=== PATIENT | male | born 1965 | race Caucasian/White ===

== ENCOUNTER 2024-11-17 11:19 | Inpatient (IN) | payer OTHER, SELFPAY ==
[2024-11-17] VITALS (13 sets, daily range): BP systolic 119–170; BP diastolic 71–95; PULSE 61–88; RESP 16–23; TEMP 36.6–37.1; O2SAT 93–98; BMI 31.6
--- NOTE | ~2024-11-17 | XR_ITS ---
XR chest 2V Ordering provider: Pramod Painter History: 58 years Male with . CP, HX OF STENT PLACEMENT . Comparison: None. FINDINGS: MEDIASTINUM: The cardiac silhouette is not enlarged. LUNGS: No infiltrates, effusions or pneumothorax. OTHER: No free air under the diaphragm. Degenerative changes of the spine. IMPRESSION: No acute cardiopulmonary pathology. Reviewed, dictated and finalized at location A. L PRODUCTS I ASSEMBLER
--- NOTE | ~2024-11-17 | US_ITS ---
EXAMINATION: US venous doppler [facility] DATE: 11/17/2024 21:46 INDICATION: Acute pulmonary embolism. TECHNIQUE: Grayscale ultrasound images without and with compression and Doppler ultrasound images of the bilateral lower extremity veins were obtained. COMPARISON: None. FINDINGS: The visualized portions of right common femoral vein, profunda (deep) femoral vein, femoral vein, pop liteal vein, peroneal veins, posterior tibial veins, and greater saphenous vein outflow are patent. The visualized portions of left common femoral vein, profunda femoral vein, femoral vein, popliteal v ein, peroneal veins, posterior tibial veins, and greater saphenous vein outflow are patent. IMPRESSION: 1. No deep venous thrombosis. Reviewed, dictated and finalized at location A. SSIONS NURSE
--- NOTE | ~2024-11-17 | CT_ITS ---
EXAMINATION: CTA chest PE protocol DATE: 11/17/2024 15:33 INDICATION: Elevated d-dimer TECHNIQUE: Computed tomography (CT) pulmonary angiogram of the chest was performed with 100 mL Omnipa que-350 intravenous contrast. Additional 3D reconstructions utilizing coronal maximum intensity proje ction (MIP) were performed. Automated exposure control and iterative reconstruction technique were em ployed. The dose-length product was 591.97 mGy-cm. COMPARISON: None FINDINGS: There are nonocclusive pulmonary arterial filling defects in the posterior segmental pulmonary arteri es of both the right and left lower lobes. There is an additional occlusive appearing filling defect in the superior segmental pulmonary artery of the lingula. There is a small region of consolidation w ithout appreciable enhancement at the anterior superior segment of the lingula consistent with second christine pulmonary infarct. Groundglass opacities and linear opacities in the bilateral lower lobes with s ome mild associated volume loss and favor atelectasis. There is a region of more dense consolidation at the anterobasilar segment of the left lower lobe which enhances and without evident upstream pulmo nary embolism and favor additional atelectasis. Small left pleural effusion. Cardiomegaly. No leftwar d bowing of the ventricular septum to suggest right heart strain. Atherosclerotic coronary artery tanisha cific location. No pericardial effusion. Mildly aneurysmal ascending thoracic aorta measuring up to 4 .1 x 4.1 cm maximal diameter. No dissection. No pathologically enlarged thoracic lymphadenopathy. Mil d diffuse hepatic steatosis with focal sparing along the gallbladder fossa. 3.0 cm exophytic cyst at the upper pole of the right kidney. 1.1 cm splenic cyst. Likely developmental anterior and posterior spinal fusion at T3-T4. Mild thoracic spondylosis. IMPRESSION: 1. Pulmonary embolism with small to moderate clot burden and with likely small infarct at the anterio r lingula. No evident right heart strain. 2. Small left pleural effusion. 3. Cardiomegaly. Reviewed, dictated and finalized at location A. STANT CHIEF TRAIN DISPATCHER IMPRESSION: 1. Pulmonary embolism with small to moderate clot burden and with likely small infarct at the anterior lingula. No evident right heart strain. 2. Small left pleural effusion. 3. Cardiomegaly.
--- NOTE | 2024-11-17 11:23 | ECG_ITS ---
Test Date: 2024-11-17 14:52:20 Measurements Intervals [place] Rate: 69 P: 15 GA: 161 QRS: 9 QRSD: 107 T: 51 QT: 398 QTc: 427 Interpretive Statements SINUS RHYTHM No previous ECG available for comparison Electronically Signed On 11-18-2024 15:48:00 AMMUNITION SPECIALIST by Jerod Arias M.D.
[2024-11-17] MEDS: ASPIRIN 81 MG CHEWABLE TABLET 324 MG PO (11:30)
[2024-11-17 12:10] LABS: Basophils Percent Auto 0.5 % (0.2-1.2); Eosinophils Absolute Auto 0.2 K/mm3 (0-0.3); Eosinophils Percent Auto 3.1 % (0-4.4); Hematocrit 42.1 % (42.0-52.0); Immature Granulocyte Absolute 0.01 K/mm3 (0.00-0.031); Immature Granulocyte Percent A 0.2 % (0-0.5); Lymphocytes Absolute Auto 1.73 K/mm3 (0.9-3.2); Lymphocytes Percent Auto 27.9 % (18.3-44.2); Mean Corpuscular HGB Conc 33.3 g/dl (32-36); Mean Corpuscular Hemoglobin 30.8 pg (26-34); Mean Corpuscular Volume 92.7 fl (80-100); Mean Platelet Volume 10.6 fl (7.4-10.4); Monocytes Absolute Auto 0.4 K/mm3 (0.1-0.6); Monocytes Percent Auto 7.1 % (2.6-8.5); Neutrophils Absolute Auto 3.8 K/mm3 (1.3-6.7); Neutrophils Percent Auto 61.2 % (45.5-73.1); Platelet Count Result 205 k/mm3 (150-375); Red Blood Count 4.54 M/mm3 (4.6-6.20); Red Cell Distribution Width 12.4 % (11.5-14.5); White Blood Count 6.2 K/mm3 (4.5-10.0)
[2024-11-17 12:20] LABS: Alanine Aminotransferase 59 U/L (6-50); Albumin Level 4.2 g/dL (3.5-5.1); Alkaline Phosphatase 82 U/L (38-126); Anion Gap 2 mmol/L (4-12); Aspartate Amino Transferase 48 U/L (17-59); Bilirubin,Total 0.6 mg/dL (0.2-1.3); Blood Urea Nitrogen 10 mg/dL (9-20); Calcium 9.3 mg/dL (8.4-10.2); Carbon Dioxide 30 mmol/L (22-30); Chloride 107 mmol/L (98-107); Estimated CRCL calculation 117 ml/min; Estimated Glomerular Filt Rate > 60; Glucose 108 mg/dL (65-110); Lipase 46 U/L (23-300); Potassium 4.1 mmol/L (3.4-5.0); Sodium 139 mmol/L (137-145)
[2024-11-17 12:21] LABS: Prothrombin Time 13.5 Seconds (11.1-14.7)
[2024-11-17 12:22] LABS: Partial Thromboplastin Time 26.8 Seconds (22.3-36.8)
[2024-11-17 12:31] LABS: Troponin I < 0.012 ng/mL (0.000-0.034)
[2024-11-17 13:09] LABS: Influenza A QL RT-PCR Negative (Negative); Influenza B QL RT-PCR Negative (Negative); RSV RNA, RT-PCR Negative (Negative); SARS-CoV-2 RNA PCR Negative (Negative)
--- NOTE | 2024-11-17 13:45 | ED_ITS ---
HPI - General Adult General Chief complaint: Chest Pain Stated complaint: chest pain x5 days Time Seen by Provider: 11/17/24 12:00 History of Present Illness HPI narrative: 58-year-old male presenting to the emergency department for evaluation for chest pain that started approximately 5 days ago. Patient states the chest pain had been constant but over the last few days it has just been with deep inspiration. Patient does have a prior history of an MT approximately 14 years ago and he felt that he was having a heart attack 2 days ago but did not present to the emergency department until today. States the reason he did not present to the ED is because symptoms were improving. Related Data Home Medications ?Medication ?Instructions ?Recorded ?Confirmed ?Last Taken ?Type amlodipine 2.5 mg tablet mg 11/17/24 11/17/24 History atorvastatin 40 mg tablet mg 11/17/24 11/17/24 History ezetimibe 10 mg tablet mg 11/17/24 11/17/24 History lisinopril 40 mg tablet mg 11/17/24 11/17/24 History pantoprazole 20 mg tablet,delayed mg PO 11/17/24 11/17/24 History release Allergies Allergy/AdvReac Type Severity Reaction Status Date / Time No Known Allergies Allergy Verified 11/17/24 11:21 Review of Systems 2 Review of Systems: All systems reviewed & are unremarkable except as noted in HPI and below PMFSH Past Medical History Medical History CAD (coronary artery disease) HTN (hypertension) HLD (hyperlipidemia) MT (myocardial infarction) Surgical History Surgical History History of heart artery stent x1 Family History Family History Mother Cerebrovascular accident Social History Social History Smoking status: Current every day smoker Tobacco type: cigarettes Alcohol intake: current Drinks per week: 3 Substance use: never Do You Feel Safe in your Home?: Yes Lack of Transportation: No Lack of Food: Never True Current Housing: I Have Housing Concerned About Future Housing: No Difficulty Paying Gas/Electric Bills: No Difficulty Paying for Meds: No Currently Unemployed: No Education: High School Diploma/GED Difficulty w/ Childcare or Family Care: No Spiritual care concerns: No Exam 2 Narrative: APPEARANCE: Well appearing, no pain, no distress, well-nourished. HEAD: normocephalic, atraumatic. EYES: PERRLA/EOMI, conjunctivae clear. NOSE: Normal no drainage EARS:TMS clear with good light reflex. THROAT: Pharynx clear, no exudate. NECK: Supple. No adenopathy, no masses. RESPIRATORY: Airway patent, respirations nonlabored. Clear to auscultation bilaterally, no rales, rhonchi, wheezing. CARDIOVASCULAR: Regular rate and rhythm without murmurs rubs or gallops. ABDOMINAL: Soft, nontender, nondistended, normal bowel sounds MUSCULOSKELETAL: Moves all extremities. Strength/ROM intact, No edema, No calf tenderness. NEURO: Alert. Cranial nerves II through XII intact. Good gait. Good coordination SKIN: Warm, dry. Normal Color Course Vital Signs Vital signs: Vital Signs Temperature 98.8 F 11/17/24 11:23 Pulse Rate 88 11/17/24 11:23 Respiratory Rate 18 11/17/24 11:23 Blood Pressure 157/90 H 11/17/24 11:23 Pulse Oximetry 98 11/17/24 11:23 Oxygen Delivery Room Air 11/17/24 11:23 Temperature 97.9 F 11/17/24 20:00 Pulse Rate 74 11/17/24 20:00 Respiratory Rate 16 11/17/24 20:00 Blood Pressure 137/74 11/17/24 20:00 Pulse Oximetry 96 11/17/24 20:00 Oxygen Delivery Room Air 11/17/24 11:23 Medical Decision Making [facility] Narrative Medical decision making narrative: 58-year-old male presenting to the emergency department for evaluation for multiple days of left-sided chest pain that is currently worsen with inspiration. Patient is afebrile with no leukocytosis and hemoglobin of 14. Patient's INR is 1.0. Patient's initial troponin is not elevated. Patient was negative for influenza RSV and for COVID. Chest x-ray shows no acute cardiopulmonary abnormality. EKG shows normal sinus rhythm with no evidence of acute infarct. Patient's D-dimer was elevated. CTA was ordered to evaluate for pulmonary embolism and patient does have moderate clot burden. No evidence of heart strain. Patient did have negative serial troponins. Patient was updated the results of his workup. Patient was comfortable with plan for admission. Case was discussed with hospitalist patient was accepted to the IMU. Heparin bolus and infusion was started while the patient was still in the emergency department. Differential Diagnosis Differential Diagnosis: ACS, pulmonary embolism, pneumonia, pneumothorax, influenza, COVID, RSV Vital Signs Vital Signs: Vital Signs Temperature 98.8 F 11/17/24 11:23 Pulse Rate 88 11/17/24 11:23 Respiratory Rate 18 11/17/24 11:23 Blood Pressure 157/90 H 11/17/24 11:23 Pulse Oximetry 98 11/17/24 11:23 Oxygen Delivery Room Air 11/17/24 11:23 Temperature 97.9 F 11/17/24 20:00 Pulse Rate 74 11/17/24 20:00 Respiratory Rate 16 11/17/24 20:00 Blood Pressure 137/74 11/17/24 20:00 Pulse Oximetry 96 11/17/24 20:00 Oxygen Delivery Room Air 11/17/24 11:23 Lab Data Lab results reviewed: Yes I reviewed the patient's lab results. 11/17/24 12:01 11/17/24 12:01 Labs: Lab Results 11/17/24 11/17/24 11/17/24 Range/Units 12: 12:27 14:47 WBC 6.2 (4.5-10.0) K/mm3 RBC 4.54 L (4.6-6.20) M/mm3 Hgb 14.0 (14.0-18.0) g/dL Hct 42.1 (42.0-52.0) % MCV 92.7 (80-100) fl MCH 30.8 (26-34) pg MCHC 33.3 (32-36) g/dl RDW 12.4 (11.5-14.5) % Plt Count 205 (150-375) k/mm3 MPV 10.6 H (7.4-10.4) fl Immature Gran % (Auto) 0.2 (0-0.5) % Neut % (Auto) 61.2 (45.5-73.1) % Lymph % (Auto) 27.9 (18.3-44.2) % Crowley % (Auto) 7.1 (2.6-8.5) % Eos % (Auto) 3.1 (0-4.4) % Baso % (Auto) 0.5 (0.2-1.2) % Lymph # (Auto) 1.73 (0.9-3.2) K/mm3 Crowley # (Auto) 0.4 (0.1-0.6) K/mm3 Eos # (Auto) 0.2 (0-0.3) K/mm3 Baso # (Auto) 0.0 (0.0-0.1) K/mm3 Abs Immat Gran (auto) 0.01 (0.00-0.031) K/mm3 Absolute Neuts (auto) 3.8 (1.3-6.7) K/mm3 Absolute Nucleated RBC 0.000 (0.0-0.012) K/mm3 Nucleated RBC % 0.0 (0.0-0.2) % PT 13.5 (11.1-14.7) Seconds INR 1.0 APTT 26.8 (22.3-36.8) Seconds D-Dimer 2.06 H (<0.48) ug/mL Sodium 139 (137-145) mmol/L Potassium 4.1 (3.4-5.0) mmol/L Chloride 107 (98-107) mmol/L Carbon Dioxide 30 (22-30) mmol/L Anion Gap 2 L (4-12) mmol/L BUN 10 (9-20) mg/dL Creatinine 0.70 (0.7-1.3) mg/dL Estim Creat Clear Calc 117 ml/min Estimated GFR > 60 (59 - ) Glucose 108 (65-110) mg/dL Calcium 9.3 (8.4-10.2) mg/dL Total Bilirubin 0.6 (0.2-1.3) mg/dL AST 48 (17-59) U/L ALT 59 H (6-50) U/L Alkaline Phosphatase 82 (38-126) U/L Troponin I < 0.012 < 0.012 (0.000-0.034) ng/mL Total Protein 7.0 (6.3-8.2) g/dL Albumin 4.2 (3.5-5.1) g/dL Lipase 46 (23-300) U/L Influenza A (RT-PCR) Negative (Negative) Influenza B (RT-PCR) Negative (Negative) RSV (RT-PCR) Negative (Negative) SARS-CoV-2 RNA (RT-PCR) Negative (Negative) Imaging Data Radiologist's impression: Impressions Chest X-Ray 11/17/24 11:40 IMPRESSION: No acute cardiopulmonary pathology. Chest CTA 11/17/24 15:39 IMPRESSION: 1. Pulmonary embolism with small to moderate clot burden and with likely small infarct at the anterior lingula. No evident right heart strain. 2. Small left pleural effusion. 3. Cardiomegaly. Critical Care Time Critical Care Time Critical Care Time: Yes Total Critical Care Time: 35 Discharge Plan Discharge Clinical Impression: Pulmonary embolism Qualifiers: Pulmonary embolism type: multiple subsegmental (without acute cor pulmonale) Q ualified Code(s): I26.94 - Multiple subsegmental thrombotic pulmonary emboli without acute cor pulmonale Patient Disposition: Still a Patient Condition: Serious
[2024-11-17 14:22] LABS: D Dimer 2.06 ug/mL (<0.48)
--- NOTE | 2024-11-17 14:42 | ECG_ITS ---
Test Date: 2024-11-17 11:28:04 Measurements Intervals [place] Rate: 80 P: 28 [place]: 141 QRS: 8 QRSD: 121 T: 59 QT: 394 QTc: 456 Interpretive Statements SINUS RHYTHM WITH OCCASIONAL VENTRICULAR PREMATURE COMPLEXES MODERATE INTRAVENTRICULAR CONDUCTION DELAY [110+ ms QRS DURATION] No previous ECG available for comparison Electronically Signed On 11-18-2024 15:47:55 DRILLER HELPER by Jerod Arias M.D.
[2024-11-17 15:18] LABS: Troponin I < 0.012 ng/mL (0.000-0.034)
[2024-11-17] MEDS: HEPARIN SOD/D5W 100 UNITS/ML 25,000 UNITS/250 ML BAG 15 UNITS IV CONT (16:25)
[2024-11-17] MEDS: HEPARIN SODIUM 5,000 UNITS/ML VIAL 6500 UNITS IV PUSH (16:25)
--- NOTE | 2024-11-17 17:35 | P.HP_ITS ---
H&P: HPI History of Present Illness Date/Time: 11/17/24 17:35 Chief Complaint: Chest Pain Narrative: 58 y/o M presents here with chest pain with PMH of VT, CAD, coronary artery stent placement x1, HTN, and HLD. The patient presents here from home for further evaluation of chest pain. He reports insidious onset of chest pain approximately 5 days ago. He describes the pain as left sided, nonradiating, intermittent -> constant (around this ), peaked on Friday, aggravated by deep inspiration, and no alleviating factors. He reports associated dizziness with positional or with certain movements of his head (ex: craning to look upwards). Denies shortness of breath, nausea/vomiting, diaphoresis, GERD, or lower extremity swelling. Patient took sublingual nitro on Friday, 11/14, with no relief. The patient does have a cardiac history involving a VT approximately 14 years ago and has had a coronary artery stent placed x1. Initially concerned he was having a recurrent heart attack but did not seek evaluation due to his symptoms improving by Friday. Denies any recent surgery, cancer/treatment, immobility, or clotting disorder (personal or familial). Patient is a current smoker - 0.5-1 PPD x 45 years. Some alcohol use on his days off. Patient no longer follows with a angiography technologist. Initial VS at presentation: 98.8? F, HR 88, RR 18, 157/90, and 98% on RA. ED workup showed: No leukocytosis, no anemia, INR 1.1, D-dimer elevated, creatinine 0.7 and GFR >60, initial troponin negative, and viral PCR negative. CXR showed no acute cardiopulmonary pathology. Chest CTA showed PE with small to moderate clot burden and with likely small infarct of the anterior lingula, no evidence of right heart strain, small left pleural effusion, and cardiomegaly. Review of Systems Review of Systems: All systems reviewed & are unremarkable except as noted in HPI and below PMFSH Past Medical History Medical History CAD (coronary artery disease) HTN (hypertension) HLD (hyperlipidemia) VT (myocardial infarction) Surgical History Surgical History History of heart artery stent x1 Family History Family History Mother Cerebrovascular accident Social History Social History Smoking status: Current every day smoker Tobacco type: cigarettes Alcohol intake: current Drinks per week: 3 Substance use: never Do You Feel Safe in your Home?: Yes Lack of Transportation: No Lack of Food: Never True Current Housing: I Have Housing Concerned About Future Housing: No Difficulty Paying Gas/Electric Bills: No Difficulty Paying for Meds: No Currently Unemployed: No Education: High School Diploma/GED Difficulty w/ Childcare or Family Care: No Spiritual care concerns: No Meds Home Medications and Allergies Home Medications ?Medication ?Instructions ?Recorded ?Confirmed ?Type amlodipine 2.5 mg tablet 2.5 mg PO DAILY 11/17/24 11/17/24 History atorvastatin 40 mg tablet 40 mg PO DAILY 11/17/24 11/17/24 History ezetimibe 10 mg tablet 10 mg PO DAILY 11/17/24 11/17/24 History lisinopril 40 mg tablet 40 mg PO DAILY 11/17/24 11/17/24 History pantoprazole 20 mg tablet,delayed 20 mg PO DAILY 11/17/24 11/17/24 History release Allergies Allergy/AdvReac Type Severity Reaction Status Date / Time No Known Allergies Allergy Verified 11/17/24 11:21 Vital Signs Vital Signs - 24 hr 11/17/24 11:23 11/17/24 11:50 11/17/24 11:53 Temperature 98.8 F Pulse Rate 88 81 76 Respiratory Rate 18 20 Blood Pressure 157/90 H Pulse Oximetry 98 95 Oxygen Delivery Room Air 11/17/24 12:06 11/17/24 13:31 11/17/24 16:21 Temperature Pulse Rate 76 74 76 Respiratory Rate 16 23 H 17 Blood Pressure 170/93 H 134/95 H 134/83 Pulse Oximetry 97 93 96 Oxygen Delivery 11/17/24 17:16 11/17/24 17:17 Temperature Pulse Rate 68 75 Respiratory Rate 18 16 Blood Pressure 125/80 125/80 Pulse Oximetry 97 96 Oxygen Delivery Exam Const: General: comfortable and no acute distress Other: , male, nontoxic appearance HENMT: Face/Nose/Sinus: Normal nares present Mouth: Yes moist mucous membranes Eyes: General: appearance normal, both eyes and all related structures Sclera: sclerae normal Pupils: Equal, round and reactive pupils present EOM: EOMs intact bilaterally Resp: Effort & Inspection: normal respiratory effort Auscultation: clear to auscultation bilaterally Cardio: Rate: regular rate Rhythm: regular rhythm Other: S1-S2 present without murmur, rub, ectopy GI: Other: Abdomen soft, nondistended, nontender. Skin: General skin exam: normal color and no rashes or lesions noted Wounds: no wounds Neuro: Speech: normal speech Motor exam (neuro): 5/5 motor strength present throughout Sensory Exam: normal sensation Other: A/Ox4 Extrem: General: normal to inspection Psych: Mental Status: mental status grossly normal Affect: normal affect Other: Good insight and judgment, pleasant H&P: Results Labs Labs: Short CBC 11/17/24 Range/Units 12:01 WBC 6.2 (4.5-10.0) K/mm3 Hgb 14.0 (14.0-18.0) g/dL Hct 42.1 (42.0-52.0) % Plt Count 205 (150-375) k/mm3 BMP 11/17/24 12:01 Sodium 139 Potassium 4.1 Chloride 107 Carbon Dioxide 30 BUN 10 Creatinine 0.70 Glucose 108 Calcium 9.3 Cardiac Enzymes 11/17/24 11/17/24 Range/Units 12:01 14:47 Troponin I < 0.012 < 0.012 (0.000-0.034) ng/mL Liver Function 11/17/24 Range/Units 12:01 Total Bilirubin 0.6 (0.2-1.3) mg/dL AST 48 (17-59) U/L ALT 59 H (6-50) U/L Alkaline Phosphatase 82 (38-126) U/L Albumin 4.2 (3.5-5.1) g/dL Assessment and Plan Assessment and plan (1) Pulmonary embolism: Qualifiers: Pulmonary embolism type: multiple subsegmental (without acute cor pulmonale) Qualified Code(s): I26.94 - Multiple subsegmental thrombotic pulmonary emboli without acute cor pulmonale Code(s): I26.99 - Other pulmonary embolism without acute cor pulmonale Status: Acute Assessment and Plan: - Chest CTA: 1. Pulmonary embolism with small to moderate clot burden and with likely small infarct at the anterior lingula. No evident right heart strain. 2. Small left pleural effusion. 3. Cardiomegaly. - CXR: no acute cardiopulmonary pathology. - troponin: <0.012 x3 - EKG, initial: sinus rhythm, rate 69, no previous available for comparison. - echo and BLE US ordered - started on heparin gtt, monitor coags - no supplemental O2 requirement at this time (2) HTN (hypertension): Qualifiers: Hypertension type: primary hypertension Qualified Code(s): I10 - Essential (primary) hypertension Code(s): I10 - Essential (primary) hypertension Status: Chronic Assessment and Plan: - chronic, currently 141/71 - continue home medications: Amlodipine 2.5 mg daily, lisinopril 40 mg daily - monitor Plan Diet: Heart healthy GI Prophylaxis: Not currently indicated DVT Prophylaxis: Heparin gtt Lines: Peripheral Code Status: Full code Quality VTE Prophylaxis VTE prophylaxis: pharmacologic ordered Hospitalist MIPS Advance Care Plan I have confirmed that the patient's Advanced Care Plan is present, code status is documented, or surrogate decision maker is listed in patient medical record.: Yes Medication Reconciliation I have utilized all available resources to obtain, update and review the patients current medications (includes all prescriptions, OTC, herbals, ca nnabis, and nutritional supplements).: Yes
[2024-11-17 18:08] LABS: INR 1.1; Prothrombin Time 14.7 Seconds (11.1-14.7)
[2024-11-17 18:20] LABS: Partial Thromboplastin Time 199.4 Seconds (22.3-36.8)
[2024-11-17 18:22] LABS: Troponin I < 0.012 ng/mL (0.000-0.034)
--- NOTE | 2024-11-17 19:05 | ADMGEN ---
This patient, Gutierrez Amaral, was admitted to IMU Room 209-01. Patient/family oriented to hospital policies and general routines including ID bracelet, bed and alarms, visiting hours, pain management, procedures, bathroom and other care routines, personal items, smoking policy, room service/diet, and visiting hours. Information on how to activate the Rapid Response Team has been discussed. Patient/Family are encouraged to report perceived risks to care and to ask questions if they do not understand what they are told or what they should do.
--- NOTE | 2024-11-17 19:43 | PC.NURSE ---
Received critical PTT of 199.4. The lab was not drawn according to Heparin protocol timing. It was drawn too soon. Per pharmacist, continue Heparin drip and redraw PTT at 2225. Jossie Meek notified
[2024-11-18] VITALS (13 sets, daily range): BP systolic 114–145; BP diastolic 67–79; PULSE 61–95; RESP 16–20; TEMP 36–36.9; O2SAT 95–99
--- NOTE | 2024-11-18 | ECHO_ITS ---
Patient Info Name: Gutierrez Amaral Age: 58 years : 1965 Gender: Male Ht: 70 in Wt: 220 lbs BSA: 2.25 m2 HR: 67 bpm BP: 124 / 71 mmHg Technical Quality: Good Exam Date: 11/18/2024 12:19 PM Exam Location: Echo Lab Patient Status: Inpatient Admit Date: 11/18/2024 Staff Ordering Physician: Jossie Tim APRN [employer]er: Ruthy Wright RDCS Attending Provider: Patricia Garcia MD Referring Physician: Meeta AMES; Exam Type: CA echo doppler color flow Study Info Indications I26.09 - Other pulmonary embolism with acute cor pulmonale Complete two-dimensional, color flow and Doppler transthoracic echocardiogram is performed. Summary 1. Complete two-dimensional, color flow and Doppler transthoracic echocardiogram is performed. 2. The left ventricle is normal in size and systolic function. The left ventricular ejection fraction is visually estimated to be 55-60%. 3. The right ventricle is normal in size and systolic function. 4. The tricuspid valve is normal. There is trace tricuspid regurgitation that is insufficient to make an estimation of the pulmonary artery systolic pressures. Left Ventricle The left ventricle is normal in size and systolic function. The left ventricular ejection fraction is visually estimated to be 55-60%. Right Ventricle The right ventricle is normal in size and systolic function. Left Atria The left atrium is normal in size. Right Atria The right atrium is normal in size. Atrial Septum The atrial septum is not well visualized. Aortic Valve The aortic valve is trileaflet and opens well. There is no aortic regurgitation. Pulmonic Valve The pulmonic valve is grossly normal. There is no color Doppler evidence of pulmonic valve regurgitation. Mitral Valve The mitral valve is normal. There is no mitral regurgitation. Tricuspid Valve The tricuspid valve is normal. There is trace tricuspid regurgitation that is insufficient to make an estimation of the pulmonary artery systolic pressures. Pericardium/Pleural There is trace pericardial effusion posterior to the left ventricle. Inferior Vena Cava Normal inferior vena cava with >50% collapse upon inspiration consistent with normal right atrial pressure, 3 mmHg. Aorta The aortic root measured at the level of the sinus of Valsalva is 3.5 cm in diameter. Left Ventricular Outflow Tract Name Value Normal LVOT 2D LVOT Diameter 2.1 cm LVOT Doppler LVOT Peak Gradient 6 mmHg LVOT Mean Gradient 3 mmHg LVOT VTI 22 cm LVOT VTI/AV VTI Ratio 0.8 LVOT Stroke Volume 76 ml LVOT CO 4.7 l/min LVOT CI 2.1 l/min/m2 Pulmonic Valve Name Value Normal PV Doppler PV Peak Gradient 3 mmHg Mitral Valve Name Value Normal MV Doppler MV Decel Gordon 410 cm/s2 MV PHT 68 ms MV Area (PHT) 3.2 cm2 4.0-5.0 MV Diastolic Function MV E Peak Velocity 97 cm/s MV A Peak Velocity 115 cm/s MV E/A 0.8 MV Decel Time 235 ms Tricuspid Valve Name Value Normal Estimated PAP/RSVP RA Pressure 3 mmHg <=5 Aortic Valve Name Value Normal AV Doppler AV Peak Velocity 149 cm/s AV Peak Gradient 9 mmHg AV Mean Gradient 4 mmHg AV VTI 28 cm AV Area (Cont Eq VTI) 2.7 cm2 >=3.0 AV Area (Cont Eq Michael) 2.8 cm2 AV Regurgitation 2D LVOT Area 3.4 cm2 Ventricles Name Value Normal LV Dimensions 2D/MM IVS Diastolic Thickness (2D) 1.2 cm 0.6-1.0 IVS Diastole Thickness (MM) 0.8 cm 0.6-1.0 LVID Diastole (2D) 5.4 cm 4.2-5.8 LVID Diastole (MM) 5.9 cm 4.2-5.8 LVIW Diastolic Thickness (2D) 1.1 cm 0.6-1.0 LVIW Diastolic Thickness (MM) 0.9 cm 0.6-1.0 LVID Systole (2D) 4.4 cm 2.5-4.0 LVID Systole (MM) 3.7 cm 2.5-4.0 LVOT Diameter 2.1 cm LV Mass (2D Cubed) 242.73 g 88.00-224.00 LV Mass Index (2D Cubed) 108 g/m2 49-115 Relative Wall Thickness (2D) 0.42 LV Mass (MM Cubed) 197.84 g 88.00-224.00 LV Mass Index (MM Cubed) 88 g/m2 49-115 Relative Wall Thickness (MM) 0.30 LV Fractional Shortening/Ejection Fraction 2D/MM LV Fractional Shortening (2D) 18 % 25-43 LV Fractional Shortening (MM) 37 % 25-43 LV EF (MM Teicholz) 66 % 52-72 LV EF (2D Teicholz) 37 % 52-72 LV Diastolic Volume (4C MOD) 99 ml LV EF (4C MOD) 55 % LV Diastolic Volume (2C MOD) 60 ml LV EF (2C MOD) 55 % LV Diastolic Volume (BP MOD) 78 ml 62-150 LV Diastolic Volume Index (BP MOD) 35 ml/m2 34-74 LV Systolic Volume (BP MOD) 38 ml 21-61 LV Systolic Volume Index (BP MOD) 17 ml/m2 11-31 LV EF (BP MOD) 52 % 52-72 LV Diastolic Length (4C) 8.5 cm LV Systolic Length (4C) 7.5 cm LV Stroke Volume (4C MOD) 54 ml Atria Name Value Normal LA Dimensions LA Volume (4C A-L) 49 ml LA Volume (BP A-L) 47 ml RA Dimensions RA Area (4C) 17.1 cm2 <=18.0 Report Signatures
[2024-11-18 05:26] LABS: Basophils Percent Auto 0.5 % (0.2-1.2); Eosinophils Absolute Auto 0.3 K/mm3 (0-0.3); Eosinophils Percent Auto 5.4 % (0-4.4); Hematocrit 38.9 % (42.0-52.0); Hemoglobin 13.1 g/dL (14.0-18.0); Immature Granulocyte Absolute 0.01 K/mm3 (0.00-0.031); Immature Granulocyte Percent A 0.2 % (0-0.5); Lymphocytes Absolute Auto 2.73 K/mm3 (0.9-3.2); Lymphocytes Percent Auto 45.8 % (18.3-44.2); Mean Corpuscular HGB Conc 33.7 g/dl (32-36); Monocytes Absolute Auto 0.3 K/mm3 (0.1-0.6); Neutrophils Absolute Auto 2.6 K/mm3 (1.3-6.7); Neutrophils Percent Auto 43.1 % (45.5-73.1); Platelet Count Result 203 k/mm3 (150-375); Red Blood Count 4.23 M/mm3 (4.6-6.20); Red Cell Distribution Width 12.4 % (11.5-14.5)
[2024-11-18 05:43] LABS: Partial Thromboplastin Time 104.2 Seconds (22.3-36.8)
[2024-11-18] MEDS: ATORVASTATIN 40 MG TABLET PO (08:18)
[2024-11-18] MEDS: EZETIMIBE 10 MG TABLET PO (08:18)
[2024-11-18] MEDS: PANTOPRAZOLE SOD SESQUIHYDRATE 20 MG TAB PO (08:18)
[2024-11-18] MEDS: amLODIPine BESYLATE 2.5 MG TABLET PO (08:18)
[2024-11-18] MEDS: lisinopriL 20 MG TABLET 40 MG PO (08:18)
[2024-11-18] MEDS: HEPARIN SOD/D5W 100 UNITS/ML 25,000 UNITS/250 ML BAG 15 UNITS IV CONT (08:27)
--- NOTE | 2024-11-18 09:26 | PM.IMPN ---
Progress Note: A&P Assessment and Plan (1) HTN (hypertension): Qualifiers: Hypertension type: primary hypertension Qualified Code(s): I10 - Essential (primary) hypertension Code(s): I10 - Essential (primary) hypertension Status: Chronic (2) Pulmonary embolism: Qualifiers: Pulmonary embolism type: multiple subsegmental (without acute cor pulmonale) Qualified Code(s): I26.94 - Multiple subsegmental thrombotic pulmonary emboli without acute cor pulmonale Code(s): I26.99 - Other pulmonary embolism without acute cor pulmonale Status: Acute Plan 58 y/o M presents here with chest pain with PMH of [place], CAD, coronary artery stent placement x1, HTN, and HLD. The patient presents here from home for further evaluation of chest pain. He reports insidious onset of chest pain approximately 5 days ago. He describes the pain as left sided, nonradiating, intermittent -> constant (around this weekend), peaked on Friday, aggravated by deep inspiration, and no alleviating factors. (1) Pulmonary embolism: Qualifiers: Pulmonary embolism type: multiple subsegmental (without acute cor pulmonale) Qualified Code(s): I26.94 - Multiple subsegmental thrombotic pulmonary emboli without acute cor pulmonale Code(s): I26.99 - Other pulmonary embolism without acute cor pulmonale Status: Acute Assessment and Plan: - Chest CTA: 1. Pulmonary embolism with small to moderate clot burden and with likely small infarct at the anterior lingula. No evident right heart strain. 2. Small left pleural effusion. 3. Cardiomegaly. - CXR: no acute cardiopulmonary pathology. - troponin: <0.012 x3 - EKG, initial: sinus rhythm, rate 69, no previous available for comparison. - echo BLE US: No deep venous thrombosis. - started on heparin gtt, monitor coags - no supplemental O2 requirement at this time will change to oral anticoagulation medication tomorrow (2) HTN (hypertension): Qualifiers: Hypertension type: primary hypertension Qualified Code(s): I10 - Essential (primary) hypertension Code(s): I10 - Essential (primary) hypertension Status: Chronic Assessment and Plan: - chronic, currently 141/71 - continue home medications: Amlodipine 2.5 mg daily, lisinopril 40 mg daily - monitor Plan Diet: Heart healthy GI Prophylaxis: Not currently indicated DVT Prophylaxis: Heparin gtt Lines: Peripheral Code Status: Full code Subjective Date/time seen: 11/18/24 09:26 Interval history: I saw and examined patient today, patient denies lightheadedness, shortness of breath has resolved. Chest pain has resolved. Exam Narrative: GENERAL: Pleasant, in no acute distress. Well-nourished. - EYES: EOMI. Anicteric. - HENT: Moist mucous membranes. - LUNGS: Clear to auscultation bilaterally, no wheezing, rhonchi, or rales. - CARDIOVASCULAR: Regular rate and rhythm. No murmur. No JVD. - ABDOMEN: Soft, non-tender and non-distended. No palpable masses. - EXTREMITIES: No edema. Peripheral pulses 2+. Non-tender. - NEUROLOGIC: No focal neurological deficits. CN II-XII grossly intact. - PSYCHIATRIC: Awake, Alert and oriented x 3. Appropriate mood and affect. - SKIN: No rashes or lesions. Warm. - LYMPH: No cervical lymphadenopathy. Objective Data Vital Signs Vital Signs: Vital Signs - 24 hr 11/17/24 11:23 11/17/24 11:50 11/17/24 11:53 Temperature 98.8 F Pulse Rate 88 81 76 Respiratory Rate 18 20 Blood Pressure 157/90 H Pulse Oximetry 98 95 Oxygen Delivery Room Air 11/17/24 12:06 11/17/24 13:31 11/17/24 16:21 Temperature Pulse Rate 76 74 76 Respiratory Rate 16 23 H 17 Blood Pressure 170/93 H 134/95 H 134/83 Pulse Oximetry 97 93 96 Oxygen Delivery 11/17/24 17:16 11/17/24 17:17 11/17/24 17:32 Temperature 97.8 F Pulse Rate 68 75 68 Respiratory Rate 18 16 16 Blood Pressure 125/80 125/80 141/71 H Pulse Oximetry 97 96 97 Oxygen Delivery 11/17/24 18:00 11/17/24 20:00 11/17/24 20:00 Temperature 97.9 F Pulse Rate 79 74 61 Respiratory Rate 16 Blood Pressure 137/74 Pulse Oximetry 96 Oxygen Delivery 11/17/24 22:00 11/17/24 23:57 11/18/24 00:00 Temperature 98.1 F Pulse Rate 75 79 83 Respiratory Rate 16 Blood Pressure 119/72 Pulse Oximetry 97 Oxygen Delivery 11/18/24 02:00 11/18/24 04:00 11/18/24 04:00 Temperature 98 F Pulse Rate 61 92 62 Respiratory Rate 16 Blood Pressure 124/71 Pulse Oximetry 96 Oxygen Delivery 11/18/24 06:00 11/18/24 07:51 Temperature 98.4 F Pulse Rate 74 73 Respiratory Rate 20 Blood Pressure 137/79 Pulse Oximetry 95 Oxygen Delivery Intake/Output Intake/Output: Intake & Output 11/15/24 11/16/24 11/17/24 11/18/24 23:59 23:59 23:59 23:59 Intake Total 360 840.5 Balance 360 840.5 Meds/Results Medications: Active Medications Generic Name Dose Route Start Last Admin Trade Name Freq PRN Reason Stop Dose Admin Amlodipine Besylate 2.5 mg 11/18/24 09:00 11/18/24 08:18 Amlodipine Besylate 2.5 Mg Tablet PO 2.5 mg DAILY HENRIQUE Administration Atorvastatin Calcium 40 mg 11/18/24 09:00 11/18/24 08:18 Atorvastatin 40 Mg Tablet PO 40 mg DAILY HENRIQUE Administration Ezetimibe 10 mg 11/18/24 09:00 11/18/24 08:18 Ezetimibe 10 Mg Tablet PO 10 mg DAILY HENRIQUE Administration Heparin Sodium (Porcine) 6,500 units 11/17/24 16:07 11/17/24 16:25 Heparin Sodium 5,000 Units/Ml Vial IV PUSH 6,500 units PRN PRN Administration aPTT less than 55 seconds Heparin Sodium (Porcine) 3,500 units 11/17/24 16:07 Heparin Sodium 5,000 Units/Ml Vial IV PUSH PRN PRN aPTT 55 - 70 seconds Heparin Sodium/Dextrose 25,000 units in 250 mls @ 15 mls/hr 11/17/24 16:10 11/18/24 08:27 Heparin Sodium/D5w 100 Units/Ml IV CONT 1,500 units/hr .[id number] HENRIQUE 15 mls/hr Administration Protocol 1,500 UNITS/HR Lisinopril 40 mg 11/18/24 09:00 11/18/24 08:18 Lisinopril 20 Mg Tablet PO 40 mg DAILY HENRIQUE Administration Pantoprazole Sodium 20 mg 11/18/24 09:00 11/18/24 08:18 Pantoprazole Sod Sesquihydrate 20 Mg Tab PO 20 mg DAILY HENRIQUE Administration Perflutren Lipid Microsphere 0 ml 11/17/24 19:55 Perflutren Lipid Microspheres 1.5 Ml Vial Diluted To 10 Ml Total Volume IV PUSH 11/20/24 19:55 ONCE PRN adequate visualization Protocol Radiology Results: ITS Impressions Chest X-Ray 11/17/24 11:40 IMPRESSION: No acute cardiopulmonary pathology. Chest CTA 11/17/24 15:39 IMPRESSION: 1. Pulmonary embolism with small to moderate clot burden and with likely small infarct at the anterior lingula. No evident right heart strain. 2. Small left pleural effusion. 3. Cardiomegaly. Venous Doppler Study 11/17/24 21:49 IMPRESSION: 1. No deep venous thrombosis. Labs Labs: Laboratory Results - last 24 hr 11/17/24 11/17/24 11/17/24 12:01 12:27 14:47 WBC 6.2 RBC 4.54 L Hgb 14.0 Hct 42.1 MCV 92.7 MCH 30.8 MCHC 33.3 RDW 12.4 Plt Count 205 MPV 10.6 H Immature Gran % (Auto) 0.2 Neut % (Auto) 61.2 Lymph % (Auto) 27.9 [place] % (Auto) 7.1 Eos % (Auto) 3.1 Baso % (Auto) 0.5 Lymph # (Auto) 1.73 [place] # (Auto) 0.4 Eos # (Auto) 0.2 Baso # (Auto) 0.0 Abs Immat Gran (auto) 0.01 Absolute Neuts (auto) 3.8 Absolute Nucleated RBC 0.000 Nucleated RBC % 0.0 PT 13.5 INR 1.0 APTT 26.8 D-Dimer 2.06 H Sodium 139 Potassium 4.1 Chloride 107 Carbon Dioxide 30 Anion Gap 2 L BUN 10 Creatinine 0.70 Estim Creat Clear Calc 117 Estimated GFR > 60 Glucose 108 Calcium 9.3 Total Bilirubin 0.6 AST 48 ALT 59 H Alkaline Phosphatase 82 Troponin I < 0.012 < 0.012 Total Protein 7.0 Albumin 4.2 Lipase 46 Influenza A (RT-PCR) Negative Influenza B (RT-PCR) Negative RSV (RT-PCR) Negative SARS-CoV-2 RNA (RT-PCR) Negative 11/17/24 11/17/24 11/17/24 17:45 17:46 22:50 WBC RBC Hgb Hct MCV MCH MCHC RDW Plt Count MPV Immature Gran % (Auto) Neut % (Auto) Lymph % (Auto) [place] % (Auto) Eos % (Auto) Baso % (Auto) Lymph # (Auto) [place] # (Auto) Eos # (Auto) Baso # (Auto) Abs Immat Gran (auto) Absolute Neuts (auto) Absolute Nucleated RBC Nucleated RBC % PT 14.7 INR 1.1 APTT 199.4 H* 100.0 H D-Dimer Sodium Potassium Chloride Carbon Dioxide Anion Gap BUN Creatinine Estim Creat Clear Calc Estimated GFR Glucose Calcium Total Bilirubin AST ALT Alkaline Phosphatase Troponin I < 0.012 Total Protein Albumin Lipase Influenza A (RT-PCR) Influenza B (RT-PCR) RSV (RT-PCR) SARS-CoV-2 RNA (RT-PCR) 11/18/24 04:53 WBC 6.0 RBC 4.23 L Hgb 13.1 L Hct 38.9 L MCV 92.0 MCH 31.0 MCHC 33.7 RDW 12.4 Plt Count 203 MPV 11.0 H Immature Gran % (Auto) 0.2 Neut % (Auto) 43.1 L Lymph % (Auto) 45.8 H [place] % (Auto) 5.0 Eos % (Auto) 5.4 H Baso % (Auto) 0.5 Lymph # (Auto) 2.73 [place] # (Auto) 0.3 Eos # (Auto) 0.3 Baso # (Auto) 0.0 Abs Immat Gran (auto) 0.01 Absolute Neuts (auto) 2.6 Absolute Nucleated RBC 0.000 Nucleated RBC % 0.0 PT INR APTT 104.2 H D-Dimer Sodium Potassium Chloride Carbon Dioxide Anion Gap BUN Creatinine Estim Creat Clear Calc Estimated GFR Glucose Calcium Total Bilirubin AST ALT Alkaline Phosphatase Troponin I Total Protein Albumin Lipase Influenza A (RT-PCR) Influenza B (RT-PCR) RSV (RT-PCR) SARS-CoV-2 RNA (RT-PCR)
--- NOTE | 2024-11-18 22:30 | PC.NURSE ---
Patient transferred to [facility] in stable condition. All belongings have been sent with him and report was called to Flor MEYER. Patient sent by wheelchair with CCT.
--- NOTE | 2024-11-18 23:26 | PC.NURSE ---
Pt transferred from IMU to 3rd Med Surg Room 331-2 via wheelchair @2221. Pt with heparin drip going at 15 mls/hr. PTT check due in the morning.
[2024-11-19] VITALS (9 sets, daily range): BP systolic 105–124; BP diastolic 62–81; PULSE 60–706; RESP 16–20; TEMP 36–36.5; O2SAT 95–97
[2024-11-19] MEDS: HEPARIN SOD/D5W 100 UNITS/ML 25,000 UNITS/250 ML BAG 15 UNITS IV CONT (02:57)
[2024-11-19 05:57] LABS: Partial Thromboplastin Time 120.9 Seconds (22.3-36.8)
[2024-11-19] MEDS: EZETIMIBE 10 MG TABLET PO (08:45)
[2024-11-19] MEDS: PANTOPRAZOLE SOD SESQUIHYDRATE 20 MG TAB PO (08:45)
[2024-11-19] MEDS: ATORVASTATIN 40 MG TABLET PO (08:45)
[2024-11-19] MEDS: APIXABAN 5 MG TABLET PO ×2 (13:31→14:57)
--- NOTE | 2024-11-19 13:31 | PC.NURSE ---
pt started on eliquis per new order, heparin has been on hold since 1129, reviewed med with pt
--- NOTE | 2024-11-19 14:44 | PM.DS ---
DS: Admitting Diagnosis Discharge Date 11/19/2024 Admitting Diagnosis Chest pain DS: Discharge Diagnosis Discharge Diagnosis (1) HTN (hypertension): Qualifiers: Hypertension type: primary hypertension Qualified Code(s): I10 - Essential (primary) hypertension Code(s): I10 - Essential (primary) hypertension Status: Chronic (2) Pulmonary embolism: Qualifiers: Pulmonary embolism type: multiple subsegmental (without acute cor pulmonale) Qualified Code(s): I26.94 - Multiple subsegmental thrombotic pulmonary emboli without acute cor pulmonale Code(s): I26.99 - Other pulmonary embolism without acute cor pulmonale Status: Acute Plan Please refer to hospital course for brief summary 58 y/o M presents here with chest pain with PMH of CA, CAD, coronary artery stent placement x1, HTN, and HLD. The patient presents here from home for further evaluation of chest pain. He reports insidious onset of chest pain approximately 5 days ago. He describes the pain as left sided, nonradiating, intermittent -> constant (around this weekend), peaked on Friday, aggravated by deep inspiration, and no alleviating factors. (1) Pulmonary embolism: Qualifiers: Pulmonary embolism type: multiple subsegmental (without acute cor pulmonale) Qualified Code(s): I26.94 - Multiple subsegmental thrombotic pulmonary emboli without acute cor pulmonale Code(s): I26.99 - Other pulmonary embolism without acute cor pulmonale Status: Acute Assessment and Plan: - Chest CTA: 1. Pulmonary embolism with small to moderate clot burden and with likely small infarct at the anterior lingula. No evident right heart strain. 2. Small left pleural effusion. 3. Cardiomegaly. - CXR: no acute cardiopulmonary pathology. - troponin: <0.012 x3 - EKG, initial: sinus rhythm, rate 69, no previous available for comparison. - echo BLE US: No deep venous thrombosis. - started on heparin gtt, monitor coags - no supplemental O2 requirement at this time will change to oral anticoagulation medication tomorrow (2) HTN (hypertension): Qualifiers: Hypertension type: primary hypertension Qualified Code(s): I10 - Essential (primary) hypertension Code(s): I10 - Essential (primary) hypertension Status: Chronic Assessment and Plan: - chronic, currently 141/71 - continue home medications: Amlodipine 2.5 mg daily, lisinopril 40 mg daily - monitor DS: Summary Hospital Course Hospital Course: 58-year-old male presenting to the emergency department for evaluation for chest pain that started approximately 5 days ago. Patient states the chest pain had been constant but over the last few days it has just been with deep inspiration. Patient does have a prior history of an CA approximately 14 years ago and he felt that he was having a heart attack 2 days ago but did not present to the emergency department until today. States the reason he did not present to the ED is because symptoms were improving. ED workup showed: No leukocytosis, no anemia, INR 1.1, D-dimer elevated, creatinine 0.7 and GFR >60, initial troponin negative, and viral PCR negative. CXR showed no acute cardiopulmonary pathology. Chest CTA showed PE with small to moderate clot burden and with likely small infarct of the anterior lingula, no evidence of right heart strain, small left pleural effusion, and cardiomegaly. Bilateral lower extremity shows no deep vein thrombosis. Patient was started previously on heparin drip. Today discontinued heparin drip and started Eliquis 10 mg p.o. b.i.d. for 7 days. Advised to patient to continue Eliquis 5 mg b.i.d. after the 7 days course of 10 mg b.i.d.. Since unprovoked PE advised to continue Eliquis 5 mg p.o. b.i.d. for 6 months and to continuing beyond that advised to consult PCP or Hematology. Discharge Instructions: Patient needs to take Eliquis 10 mg 2 times a day for 7 days. Then patient needs to take Eliquis 5 mg 2 times a day for 6 months. In regards to continuation after 6 months would like to consult with PCP or passenger service representative. In the event of any signs of bleeding: shortness of breath, chest pain, fatigue advise to seek medical care immediately. Status at Discharge Cognitive/behavioral status at discharge: Stable Time Spent with Patient Time attestation: Total time spent providing and/or coordinating discharge services: 45 minutes Exam Narrative: GENERAL: Pleasant, in no acute distress. Well-nourished. - EYES: EOMI. Anicteric. - HENT: Moist mucous membranes. - LUNGS: Clear to auscultation bilaterally, no wheezing, rhonchi, or rales. - CARDIOVASCULAR: Regular rate and rhythm. No murmur. No JVD. - ABDOMEN: Soft, non-tender and non-distended. No palpable masses. - EXTREMITIES: No edema. Peripheral pulses 2+. Non-tender. - NEUROLOGIC: No focal neurological deficits. CN II-XII grossly intact. - PSYCHIATRIC: Awake, Alert and oriented x 3. Appropriate mood and affect. - SKIN: No rashes or lesions. Warm. - LYMPH: No cervical lymphadenopathy. Const: General: comfortable and no acute distress Other: , male, nontoxic appearance HENMT: Face/Nose/Sinus: Normal nares present Mouth: Yes moist mucous membranes Eyes: General: appearance normal, both eyes and all related structures Sclera: sclerae normal Pupils: Equal, round and reactive pupils present EOM: EOMs intact bilaterally Resp: Effort & Inspection: normal respiratory effort Auscultation: clear to auscultation bilaterally Cardio: Rate: regular rate Rhythm: regular rhythm Other: S1-S2 present without murmur, rub, ectopy GI: Other: Abdomen soft, nondistended, nontender. Skin: General skin exam: normal color and no rashes or lesions noted Wounds: no wounds Neuro: Cranial nerves: Yes Equal, round and reactive pupils present Speech: normal speech Motor exam (neuro): 5/5 motor strength present throughout Sensory Exam: normal sensation Other: A/Ox4 Extrem: General: normal to inspection Psych: Mental Status: mental status grossly normal Affect: normal affect Other: Good insight and judgment, pleasant DS: Data Data Completed and Pending Labs on day of discharge: Labs from last 24 hours 11/19/24 05:26 APTT 120.9 H Discharge Plan Discharge Attending physician on discharge: Saroj Nieves Discharging Clinician: Saroj Nieves Anticipated Discharge Date/Time: 11/19/24 16:26 Patient Disposition: Home, Self-Care Activity: as tolerated Diet: as tolerated and regular Discharge Instructions: Patient needs to take Eliquis 10 mg 2 times a day for 7 days. Then patient needs to take Eliquis 5 mg 2 times a day for 6 months. In regards to continuation after 6 months would like to consult with PCP or passenger service representative. In the event of any signs of bleeding: shortness of breath, chest pain, fatigue advise to seek medical care immediately. Patient Instructions: Antibiotic Form, Apixaban (By mouth), Safe Use of Anticoagulants (DC) Patient Language: Sami Stand Alone Forms: General Discharge Information Follow-up/Referrals: UNKNOWN,DOCTOR [Primary Care Provider] - Discharge Medications: New Eliquis 5 mg Tablet 10 mg PO Q12HR Qty: 14 0RF Eliquis 5 mg Tablet 5 mg PO Q12HR Qty: 60 0RF Continued atorvastatin 40 mg tablet 40 mg PO DAILY amlodipine 2.5 mg tablet 2.5 mg PO DAILY pantoprazole 20 mg tablet,delayed release (DR/EC) 20 mg PO DAILY lisinopril 40 mg tablet 40 mg PO DAILY ezetimibe 10 mg tablet 10 mg PO DAILY Date of admission: 11/18/24 10:34 Primary Care Provider: UNKNOWN,DOCTOR Admitting Provider: Patricia Garcia Attending physician on admission: Ptaricia Garcia Condition: Stable
== END 2024-11-19 17:23 | disposition home or self-care (01) | DRG 176 ==
LOC: ANHED 16:07 → ANHIMU 17:11 → ANH3MEDSUR 11-18 23:14
PROVIDERS: Family Medicine; Student in an Organized Health Care Education/Training Program; Admitting Provider Hospitalist; Emergency Provider Emergency Medicine; Visit Provider General Practice
DX: I26.94 Multiple subsegmental thrombotic pulmonary emboli without acute cor pulmonale (principal); I25.10 Atherosclerotic heart disease of native coronary artery without angina pectoris; I10 Essential (primary) hypertension; E78.5 Hyperlipidemia, unspecified; F17.210 Nicotine dependence, cigarettes, uncomplicated; I25.2 Old myocardial infarction; Z95.5 Presence of coronary angioplasty implant and graft
CPT/HCPCS: 36415; 71046; 71275; 80053; 83690; 84484; 85025; 85380; 85610; 85730; 87637; 93005; 93306; 93970; 96374; 96375; 99291; A9270; G0378; J1644; Q9967